=== PATIENT | male | born 1970 | race Caucasian/White ===

== ENCOUNTER 2016-11-20 17:30 | Emergency (ER) | payer SELFPAY ==
[~2016-11-20] VITALS: Ht 177.8 cm; Wt 192.8 kg
[2016-11-20 17:42] VITALS: BP 157/90
[2016-11-20] MEDS ORDERED: NAPR500T PO (18:14)
[2016-11-20] MEDS ORDERED: HYDR-965 PO (18:14)
[2016-11-20] MEDS ORDERED: MORPHINE SULFATE 10 MG/ML SYRINGE. ONE (18:15)
--- NOTE | 2016-11-20 18:18 | PHYS DOC ---
General Chief Complaint: KNEE INJURY Stated Complaint: LEFT KNEE INJURY Time Seen by MD: 18:12 Source: patient Exam Limitations: no limitations Problems: History of Present Illness Initial Comments Pt is 46/M to ED c/o L knee pain. 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 States he stepped off a step and landed on straight L leg with knee locked straight. Generalized pain at the joint line immediately on landing, pt did not fall leg did not give out no pops/clicks. Has been ambulatory since then, no focal tenderness just points to anterior joint line. Worse with movement better with rest, OTC IBU not helping. No numbness/tingling/weakness/ radiating sx, no foot or low back pain. Onset: this afternoon Severity: moderate Pain/Injury Location: left knee Method of Injury: other Modifying Factors: worse with jarring, worse with movement, improves with rest Allergies: Coded Allergies: No Known Drug Allergies (Unverified , 11/20/16) Past Medical History Medical History: no pertinent history (morbidly obese) Surgical History: noncontributory Social History Smoker: non-smoker Alcohol: none Drugs: none Review of Systems Constitutional: denies chills, denies fever Respiratory: denies cough, denies shortness of breath Cardiovascular: denies chest pain, denies palpitations Gastrointestinal: denies diarrhea, denies nausea Musculoskeletal: see HPI Psychiatric/Neurological: denies numbness, denies paresthesia, denies weakness Physical Exam General Appearance: no apparent distress, obese Neck: non-tender, supple Cardiovascular/Respiratory: normal peripheral pulses, no respiratory distress Back: no CVA tenderness, no vertebral tenderness Knees: right knee non-tender, right knee normal inspection, right knee normal range of motion, right knee no evidence of injury, left knee pain, left knee soft tissue tenderness, left knee other (L Knee: posterolateral tibial TTP noted, generalized joint line TTP due to possibility of fx ligament testing not done. No palpable bony deform or skin changes) Neurologic/Tendon: normal sensation, normal motor functions, normal tendon functions, responds to pain, no evidence tendon injury Psychiatric: alert, oriented x 3 Skin: normal color, warm/dry Orders, Labs, Meds L Knee: questionable chip fracture posterior tibia plateau, does not appear sesamoid. I discussed tx plan, will be conservative tx as fracture until RAD report. Pt expressed agreement/understanding with treatment plan, ext NV after splint placed. Departure Time of Disposition: 18:15 Disposition: 01 HOME, SELF-CARE Diagnosis: Internal Derangement L Knee NOS, Fall Condition: GOOD Patient Instructions: Knee Sprain, [id number], RICE - Routine Care for Injuries, [id number] Additional Instructions: RICE, see handout. Nonweight bearing crutches only until doctor follow up. Wear immobilizer as needed. Rx: naprosyn, norco 7.5mg #20 Increase fluid intake and take OTC stool softeners while taking norco. Per your request, ED staff will provide you a list of local doctors accepting new patients. Please note, some have walk-in hours. Follow up with a doctor in 3-5 days for recheck and official x-ray report. You may need further imaging and/or specialty consultation. Return to ED with new or changing symptoms. TYRELL PATINO DO Nov 20, 2016 18:18
[2016-11-20] MEDS ORDERED: MORPHINE SULFATE 10 MG/ML SYRINGE. IM ONE (18:30)
--- NOTE | 2016-11-21 08:37 | RAD ---
Indication pain. Recent injury. AP oblique and lateral views of the left knee were obtained. A definite fracture or acute bony finding is not seen. Significant joint fluid is not apparent. If additional evaluation is warranted or an occult fracture remains clinically suspect an MRI examination should be considered
== END 2016-11-20 18:35 | disposition home or self-care (01) ==
LOC: ER 17:30
DX: M23.92 Unspecified internal derangement of left knee (principal); E66.01 Morbid (severe) obesity due to excess calories; Z68.44 Body mass index [BMI] 60.0-69.9, adult
CPT/HCPCS: 29505; 73564; 96372; 99284; J2270